=== PATIENT | male | born 1955 | race Caucasian/White ===

== ENCOUNTER 2016-09-16 08:21 | Day surgery (SDC) | payer BC ==
--- NOTE | ~2016-09-16 | EGD ---
EGD REPORT [facility] [address] [address] NAME: GARRICK THAKUR : [birth year] STATUS : REG [facility] PAT#: [id number] AGE: 61 ADM/REG DATE : 09/16/16 MR#: [id number] REPORT SERV DATE: 09/16/16 DICTATED BY: KANG GRAHAM DATE: 09/16/16 REPORT STATUS : Draft TRANSCRIBED BY: [facility] DATE: 09/16/16 Endoscopy Center Patient Name: Garrick Thakur Date of : 1955 Attending MD: KANG GRAHAM MD Procedure Date No Time: 09/16/2016 Procedure: Upper GI endoscopy Indications: Dysphagia, Gastro-esophageal reflux disease Referring MD: FELICITY COOK Medicines: Propofol per Anesthesia Complications: No immediate complications. Procedure: Pre-Anesthesia Assessment: - ASA Grade Assessment: II - A patient with mild systemic disease. After obtaining informed consent, the endoscope was passed under direct vision. Throughout the procedure, the patient's blood pressure, pulse, and oxygen saturations were monitored continuously. The GIF [id number] was introduced through the mouth, and advanced to the third part of duodenum. The upper GI endoscopy was accomplished without difficulty. The patient tolerated the procedure well. Findings: Non-severe esophagitis with no bleeding was found in the entire esophagus. A benign-appearing, intrinsic mild stenosis was found in the upper third of the esophagus and was traversed. A guidewire was placed and the scope was withdrawn. Dilation was performed with a Savary dilator with mild resistance at 60 Fr. The esophagus looked satisfactory post dilation A benign-appearing, intrinsic mild stenosis was found at the gastroesophageal junction and was traversed. A guidewire was placed and the scope was withdrawn. Dilation was performed with a Savary dilator with mild resistance at 60 Fr. The esophagus looked satisfactory post dilation A small hiatus hernia was present. Seen on retroflexion, done prior to dilation Diffuse mild inflammation characterized by congestion (edema) and erythema was found in the entire examined stomach. Biopsies were taken with a cold forceps for Helicobacter pylori testing. Localized mild inflammation characterized by congestion (edema) and erythema was found in the duodenal bulb. Biopsies were taken with a cold forceps for evaluation of celiac disease. And giardia, whipple's disease, and enteritis The 2nd part of the duodenum and 3rd part of the duodenum were normal. EGD REPORT [address] [place]. [address] NAME: GARRICK THAKUR : [birth year] STATUS : REG [facility] PAT#: [id number] AGE: 61 ADM/REG DATE : 09/16/16 MR#: [id number] REPORT SERV DATE: 09/16/16 DICTATED BY: KANG GRAHAM DATE: 09/16/16 REPORT STATUS : Draft TRANSCRIBED BY: [facility] [facility] DATE: 09/16/16 Biopsies were taken with a cold forceps for evaluation of celiac disease. And giardia, whipple's disease, and enteritis Impression: - Non-severe esophagitis. - Benign-appearing esophageal stricture. Dilated. - Benign-appearing esophageal stricture. Dilated. - Hiatus hernia. - Gastritis. Biopsied. - Duodenitis. Biopsied. - Normal 2nd part of the duodenum and 3rd part of the duodenum. Biopsied. Recommendation: - Patient has a contact number available for emergencies. The signs and symptoms of potential delayed complications were discussed with the patient. Return to normal activities tomorrow. Written discharge instructions were provided to the patient. - Clear liquid diet today. - diet is clear liquid today, full liquid tomorrow, soft mushy food the next day, and resume usual diet the day after that. - Continue present medications. - Use Prilosec (omeprazole) 20 mg PO daily. - take 30-60 minutes before breakfast - Return to my office as previously scheduled. - Discharge patient to home. Procedure Code(s): --- Professional --- 73116, Esophagogastroduodenoscopy, flexible, transoral; with insertion of guide wire followed by passage of dilator(s) through esophagus over guide wire 44231, Esophagogastroduodenoscopy, flexible, transoral; with biopsy, single or multiple Diagnosis Code(s): --- Professional --- K20.9, Esophagitis, unspecified K22.2, Esophageal obstruction K44.9, Diaphragmatic hernia without obstruction or gangrene K29.70, Gastritis, unspecified, without bleeding K29.80, Duodenitis without bleeding R13.10, Dysphagia, unspecified K21.9, Gastro-esophageal reflux disease without esophagitis CPT copyright 2013 [employer] [employer]. All rights reserved. EGD REPORT [facility] [address] [place] [address] [place]. [address] NAME: GARRICK THAKUR : [birth year] STATUS : REG [facility] PAT#: [id number] AGE: 61 ADM/REG DATE : 09/16/16 MR#: [id number] REPORT SERV DATE: 09/16/16 DICTATED BY: KANG GRAHAM DATE: 09/16/16 REPORT STATUS : Draft TRANSCRIBED BY: [employer] DATE: 09/16/16 The codes documented in this report are preliminary and upon fire hydrant operator review may be revised to meet current compliance requirements. Kang Graham MD KANG GRAHAM MD 09/16/2016 11:20 AM This report has been signed electronically. Number of Addenda: 0 Note Initiated On: 09/16/2016 10:33 AM Scope Withdrawal Time 0 hours 0 minutes 0 seconds [id number] [place] [address]
--- NOTE | ~2016-09-16 | EGD ---
EGD REPORT [facility] [address] [address] NAME: GARRICK THAKUR : [birth year] STATUS : [place] [facility] [place] PAT#: [id number] AGE: 61 ADM/REG DATE : 09/16/16 MR#: [id number] REPORT SERV DATE: 09/16/16 DICTATED BY: DATE: REPORT STATUS : Draft TRANSCRIBED BY: [employer] DATE: 09/16/16 Endoscopy Center Patient Name: Garrick Thakur Date of : 1955 Attending MD: KANG GRAHAM MD Procedure Date No Time: 09/16/2016 Procedure: Colonoscopy Indications: Screening for colorectal malignant neoplasm Referring MD: FELICITY COOK Medicines: Propofol per Anesthesia Complications: No immediate complications. Procedure: Pre-Anesthesia Assessment: - ASA Grade Assessment: II - A patient with mild systemic disease. After I obtained informed consent, the scope was passed under direct vision. Throughout the procedure, the patient's blood pressure, pulse, and oxygen saturations were monitored continuously. The CF [id number] was introduced through the anus and advanced to the terminal ileum. The appendiceal orifice, terminal ileum and rectum were photographed. The colonoscopy was performed without difficulty. The patient tolerated the procedure well. The quality of the bowel preparation was good. Findings: The perianal and digital rectal examinations were normal. The terminal ileum appeared normal. The colon (entire examined portion) appeared normal. Non-bleeding internal hemorrhoids were found during retroflexion and were mild, small and Grade I (internal hemorrhoids that do not prolapse). Impression: - The examined portion of the ileum was normal. - The entire examined colon is normal. - Non-bleeding internal hemorrhoids. Recommendation: - Patient has a contact number available for emergencies. The signs and symptoms of potential delayed complications were discussed with the patient. Return to normal activities tomorrow. Written discharge instructions were provided to the patient. - Clear liquid diet today. - diet is clear liquid today, full liquid tomorrow, soft mushy food the next day, and resume usual diet the day after that. - Continue present medications. EGD REPORT [address] [address] NAME: GARRICK THAKUR : [birth year] STATUS : [place] [facility] [place] PAT#: [id number] AGE: 61 ADM/REG DATE : 09/16/16 MR#: [id number] REPORT SERV DATE: 09/16/16 DICTATED BY: DATE: REPORT STATUS : Draft TRANSCRIBED BY: [employer] DATE: 09/16/16 - Repeat colonoscopy in 10 years for screening purposes. - Return to my office as previously scheduled. - Discharge patient to home. Procedure Code(s): --- Professional --- G0121, Colorectal cancer screening; colonoscopy on individual not meeting criteria for high risk Diagnosis Code(s): --- Professional --- K64.0, First degree hemorrhoids Z12.11, Encounter for screening for malignant neoplasm of colon CPT copyright 2013 [employer]. All rights reserved. The codes documented in this report are preliminary and upon snack bar attendant review may be revised to meet current compliance requirements. Kang Graham MD KANG GRAHAM MD 09/16/2016 11:28 AM This report has been signed electronically. Number of Addenda: 0 Note Initiated On: 09/16/2016 10:31 AM Scope Withdrawal Time 0 hours 15 minutes 27 seconds [id number] [place] [address]
[~2016-09-16 08:21] MED LIST: LOFIB160 PO; LOP25 PO; MEVACOR PO; MOBIC15 MG PO; NIACIN 500 PO; PRILO PO
== END 2016-09-16 23:59 | disposition home health service (06) ==
LOC: DMU 08:21
PROVIDERS: Internal Medicine Gastroenterology
PROC: 0DB68ZX Excision of Stomach, Via Natural or Artificial Opening Endoscopic, Diagnostic (ICD-10-PCS; 2016-09-16)
PROC: 0DJD8ZZ Inspection of Lower Intestinal Tract, Via Natural or Artificial Opening Endoscopic (ICD-10-PCS; 2016-09-16)
PROC: 0D718ZZ Dilation of Upper Esophagus, Via Natural or Artificial Opening Endoscopic (ICD-10-PCS; principal; 2016-09-16 09:30)
PROC: 0D748ZZ Dilation of Esophagogastric Junction, Via Natural or Artificial Opening Endoscopic (ICD-10-PCS; 2016-09-16 09:30)
PROC: 0DB98ZX Excision of Duodenum, Via Natural or Artificial Opening Endoscopic, Diagnostic (ICD-10-PCS; 2016-09-16 09:30)
DX: Z12.11 Encounter for screening for malignant neoplasm of colon (principal); K29.50 Unspecified chronic gastritis without bleeding; K21.0 Gastro-esophageal reflux disease with esophagitis; K22.2 Esophageal obstruction; K44.9 Diaphragmatic hernia without obstruction or gangrene; K64.0 First degree hemorrhoids; I10 Essential (primary) hypertension; E78.00 Pure hypercholesterolemia, unspecified; M19.90 Unspecified osteoarthritis, unspecified site; Z79.899 Other long term (current) drug therapy; Z87.891 Personal history of nicotine dependence; Z98.890 Other specified postprocedural states
CPT/HCPCS: 88305; 88342